=== PATIENT | female | born 1950 | race Caucasian/White ===

== ENCOUNTER → 2017-09-19 | Outpatient (CLI) | payer MEDICARE, OTHER | LOC: MC.RAD 08:51 | DX: Z12.31 Encounter for screening mammogram for malignant neoplasm of breast (principal) ==

== ENCOUNTER 2018-02-15 14:29 | Emergency (ER) | payer MEDICARE, OTHER ==
[~2018-02-15] VITALS: Ht 160 cm; Wt 67.7 kg
[2018-02-15 14:31] VITALS: TEMP 98.1
[2018-02-15 15:56] LABS: COLLECTION METHOD CLEAN CATCH
[2018-02-15] MEDS ORDERED: ZYRTEC-D 5 MG-11 TER PO (16:07)
[2018-02-15] MEDS ORDERED: PRINIVIL10 MG PO (16:07)
[2018-02-15] MEDS ORDERED: CRESTOR5 MG PO (16:07)
[2018-02-15] MEDS ORDERED: CALCIUM CARBON650 M2 (16:08)
[2018-02-15] MEDS ORDERED: PROBIOTIC FORMU1 CAP PO (16:08)
[2018-02-15] MEDS ORDERED: CENTRUM SILVER1 CTB PO (16:08)
[2018-02-15] MEDS ORDERED: EPA FISH OIL1 SGL PO (16:08)
[2018-02-15 16:10] LABS: MUCOUS Present /lpf; PH 6 (5-8); SQUAMOUS EPITHELIAL 0-2 /hpf; URINE APPEARANCE Hazy; URINE BACTERIA None Seen /hpf; URINE BILIRUBIN Negative (NEGATIVE); URINE BLOOD Negative (NEGATIVE); URINE COLOR Yellow; URINE GLUCOSE Negative (NEGATIVE); URINE KETONE Trace (NEGATIVE); URINE LEUKOCYTE ESTERASE 2+ (NEGATIVE); URINE NITRATE Negative (NEGATIVE); URINE PROTEIN(semi-quant) Negative (NEGATIVE); URINE RBC 0-2 /hpf
[2018-02-15 16:27] LABS: BASO # 0.1 (0.0-0.2); BASO % 0.6 % (0.0-2.0); EOS # 0.6 (0.0-0.7); EOS % 4.6 % (0-4.0); GRAN # 9.8 (1.4-6.5); HEMATOCRIT 44.3 % (37.0-47.0); HEMOGLOBIN 14.8 g/dl (12.5-16.0); LYMPH # 1.8 (1.2-3.4); LYMPH % 13.8 % (20.0-51.0); MEAN CELL VOLUME 86 fl (80.0-100.0); MEAN CORPUSCULAR HEMOGLOBIN 29 pg (27.0-31.0); MEAN CORPUSCULAR HGB CONC 33 g/dl (33.0-37.0); MONO # 0.7 (0.1-0.6); MONO % 5.5 % (1.7-9.3); PLATELET COUNT 354 K/mm3 (130-400); RED BLOOD COUNT 5.17 M/mm3 (4.10-5.30); REDCELL DISTRIBUTION WIDTH-CV 12.5 % (11.5-14.5)
[2018-02-15 16:35] LABS: ALBUMIN 4.5 gm/dL (3.5-5.0); BILIRUBIN,TOTAL 0.5 mg/dL (0.0-1.0); C-REACTIVE PROTEIN 0.7 mg/dL (0.0-0.9); CALCIUM 9.6 mg/dL (8.4-10.2); CREATININE, serum 0.85 mg/dL (0.52-1.25); POTASSIUM 4.4 mmol/L (3.4-5.0); TOTAL PROTEIN 7.9 gm/dL (6.4-8.2)
[2018-02-15 18:31] VITALS: BP 156/99
[2018-02-15] MEDS ORDERED: FLAGYL500 MG PO (18:52)
[2018-02-15] MEDS ORDERED: CIPRO 500MG TA500 MG PO (18:52)
[2018-02-15 19:12] VITALS: PULSE 90
== END 2018-02-15 19:12 | disposition home or self-care (01) ==
LOC: COL.ER 14:29
PROVIDERS: Emergency Medicine
DX: K52.9 Noninfective gastroenteritis and colitis, unspecified (principal); I10 Essential (primary) hypertension; E78.5 Hyperlipidemia, unspecified; Z90.89 Acquired absence of other organs
CPT/HCPCS: J7030; Q9967

== ENCOUNTER → 2018-10-11 | Outpatient (CLI) | payer MEDICARE, OTHER ==
[~2018-10-11] MED LIST: CALCIUM CARBON650 M2; CENTRUM SILVER1 CTB PO; CIPRO 500MG TA500 MG PO; CRESTOR5 MG PO; EPA FISH OIL1 SGL PO; FLAGYL500 MG PO; PRINIVIL10 MG PO; PROBIOTIC FORMU1 CAP PO; ZYRTEC-D 5 MG-11 TER PO
== END ==
LOC: MC.RAD 08:54
DX: Z12.31 Encounter for screening mammogram for malignant neoplasm of breast (principal)

== ENCOUNTER → 2019-11-03 | Outpatient (CLI) | payer MEDICARE | LOC: MC.RAD 10:39 | DX: Z12.31 Encounter for screening mammogram for malignant neoplasm of breast (principal) ==

== ENCOUNTER → 2020-11-04 | Outpatient (CLI) | payer MEDICARE | LOC: MC.RAD 10:06 | DX: Z12.31 Encounter for screening mammogram for malignant neoplasm of breast (principal) ==

== ENCOUNTER → 2021-11-16 | Outpatient (CLI) | payer MEDICARE | LOC: MC.RAD 09:40 | DX: Z12.31 Encounter for screening mammogram for malignant neoplasm of breast (principal) ==

== ENCOUNTER → 2023-11-27 | Outpatient (CLI) | payer MEDICARE | LOC: MC.RAD 12:45 | DX: Z12.31 Encounter for screening mammogram for malignant neoplasm of breast (principal) ==